=== PATIENT | female | born 1985 | race African-American/Black ===

== ENCOUNTER 2018-05-17 22:55 | Observation (INO) | payer MEDICAID, OTHER ==
[~2018-05-17] VITALS: Ht 165.1 cm; Wt 68.0 kg
[2018-05-18] MEDS ORDERED: LACTATED RINGERS 1,000 ML IV SCH
[2018-05-18] MEDS: TERBUTALINE SULFATE 1MG/ML VIAL SUBCUT PRN ×2 (00:52→01:15)
[2018-05-18 02:15] LABS: CLARITY URINE CLEAR (CLEAR); COLOR URINE YELLOW (YELLOW); KETONES URINE TRACE (NEGATIVE); LEUKOCYTE ESTERASE URINE NEGATIVE (NEGATIVE); NITRITE URINE NEGATIVE (NEGATIVE); OCCULT BLOOD URINE NEGATIVE (NEGATIVE); PH URINE 7.5 (4.5-8.0); PROTEIN URINE NEGATIVE (NEGATIVE); SPECIFIC GRAVITY URINE 1.013 (1.005-1.030); UROBILINOGEN URINE 0.2 E.U./dL (0.2-1.0)
[2018-05-18 02:24] LABS: *AMPHETAMINES SCREEN URINE NEGATIVE (NEGATIVE); *BARBITURATES SCREEN URINE NEGATIVE (NEGATIVE); *BENZODIAZEPINES SCREEN URINE NEGATIVE (NEGATIVE); *COCAINE SCREEN URINE NEGATIVE (NEGATIVE); METHADONE URINE SCREEN NEGATIVE (NEGATIVE)
[2018-05-18 02:25] LABS: CANNABINOID URINE SCREEN NEGATIVE (NEGATIVE); OPIATES URINE SCREEN NEGATIVE (NEGATIVE); PHENCYCLIDINE URINE SCREEN NEGATIVE (NEGATIVE)
[2018-05-18] MEDS ORDERED: FERR236T3 MT (07:28)
[2018-05-18] MEDS ORDERED: PNV1TABL76 MT (07:28)
== END 2018-05-18 03:00 | disposition left against medical advice (07) ==
LOC: L&D 22:55
PROVIDERS: ADMIT Specialist; ATTEND Specialist
DX: O62.9 Abnormality of forces of labor, unspecified (principal); Z3A.31 31 weeks gestation of pregnancy
CPT/HCPCS: 80305; 81003; 82731; 96372; 99281; G0378; J3105; J7120; 59412; 96360; 96361; 96365